=== PATIENT | male | born 1995 ===

== ENCOUNTER 2017-02-16 07:36 | Emergency (ER) | payer OTHER ==
[2017-02-16 07:36] VITALS: BMI 21.9
[2017-02-16 07:58] VITALS: RESP 18
[2017-02-16] MEDS ORDERED: Alum-Mag Hydrox-Simethicone Susp (30 mL) PO STA (08:06)
[2017-02-16 08:31] LABS: ADD MANUAL DIFF? NO
[2017-02-16 08:35] LABS: BASO # 0.03 K/mm3 (0.0-2.0); BASO % 0.5 % (0.0-3.0); EOS # 0.2 (0.0-0.7); GRAN % 36.4 % (50.0-68.0); LYMPH # 3.4 (1.2-3.4); LYMPH % 51.1 % (22.0-35.0); MEAN CELL VOLUME 86.1 fL (80.0-105.0); MEAN CORPUSCULAR HEMOGLOBIN 29.6 pg (25.0-35.0); MEAN CORPUSCULAR HGB CONC 34.4 g/dl (31.0-37.0); MEAN PLATELET VOLUME 9.6 fl (7.0-11.0); MONO # 0.6 (0.1-0.6); PLATELET COUNT 270 10^3/uL (120.0-450.0); RED CELL DISTRIBUTION WIDTH 12.7 % (11.5-14.5); WHITE BLOOD COUNT 6.6 10^3/ul (4.5-11.0)
[2017-02-16 08:48] LABS: ALB/GLOB RATIO 1.2 (1.1-1.8); ALKALINE PHOSPHATASE 62 U/L (38-133); ALT/SGPT 48 U/L (7-56); AST/SGOT 34 U/L (15-59); BILIRUBIN,TOTAL 0.6 mg/dL (0.2-1.3); BLOOD UREA NITROGEN 17 mg/dL (7-21); CALCIUM 9.3 mg/dL (8.4-10.5); CARBON DIOXIDE 26 mmol/L (21-33); CHLORIDE 103 mmol/L (98-107); GFR AFRICAN-AMERICAN > 60; GLUCOSE,RANDOM 95 mg/dL (70-110); MAGNESIUM 2.1 mg/dL (1.7-2.2); SODIUM 140 mmol/L (132-148); TOTAL PROTEIN 7.8 g/dL (5.8-8.3)
[2017-02-16 08:59] LABS: TROPONIN I < 0.01 ng/mL
[2017-02-16 09:35] VITALS: BP 115/81; PULSE 69; TEMP 97.4; O2SAT 100
--- NOTE | 2017-02-16 20:15 | CARD ---
APPROVED REPORT EKG Measurement Heart [id number] MD 132P68 [id number] <Conclusion> Poor data quality, interpretation may be adversely affected Normal sinus rhythm with sinus arrhythmia Minimal voltage criteria for LVH, may be normal variant Borderline ECG
== END 2017-02-16 09:41 | disposition home or self-care (01) ==
LOC: ED 07:36
DX: R07.89 Other chest pain (principal)
CPT/HCPCS: 80053; 82550; 83615; 83735; 84484; 85025; 93005; 96374; 99283; J1885